=== PATIENT | female | born 1970 | race Caucasian/White ===

== ENCOUNTER → 2016-11-27 | Outpatient (CLI) | payer OTHER | LOC: FIMAGING 17:42 | PROVIDERS: ATTEND Family Medicine | DX: R51 Headache (principal) ==

== ENCOUNTER → 2017-06-04 | Outpatient (CLI) | payer OTHER | LOC: FIMAGING 09:23 | PROVIDERS: ATTEND Family Medicine | DX: Z12.31 Encounter for screening mammogram for malignant neoplasm of breast (principal) | CPT/HCPCS: G0202 ==

== ENCOUNTER 2017-07-02 15:07 | Emergency (ER) | payer OTHER ==
--- NOTE | 2017-07-02 15:58 | EDPHY ---
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 She reports that she had breast augmentation surgery approximately 3 weeks ago. Two days after surgery she started feeling right sided chest pressure, that has increased in intensity and frequency. Today has occurred 8 times with associated cardiac awareness and increased pressure with inspiratory effort. She denies any fever, chills, cough, abdominal pain, lower extremity swelling. She called her plastic surgeries office today and the nurse advisor to go to the emergency room for further evaluation. Modifying Factors: none Comment: ROS: see HPI Constitutional: No fever, no chills, no weight loss Eyes: No blurred vision Respiratory: No shortness of breath, no cough Cardiovascular: No chest pain Gastrointestinal: No nausea, no vomiting, no diarrhea Genitourinary: No dysuria Extremities: No myalgias Neurologic: No weakness, no numbness Skin: No rashes Hematologic: No bruising, no bleeding MEDICAL/SURGICAL/SOCIAL HISTORY: Medical history: Generally healthy other than PVCs in her 20s. Does not take any regular medications. Surgical history: Breast augmentation Social history: . CONSTITUTIONAL: Extremely well-appearing polite and cooperative adult white female, awake and alert, no obvious distress HEENT: Atraumatic and normocephalic, PERRL, EOMI. Tympanic membranes clear. Oropharynx clear, no exudate and moist pink mucosa. Airway patent. No lymphadenopathy. No meningismus. Cardiovascular: Normal S1/S2, regular rate, regular rhythm, without murmur rub or gallop. PULMONARY/CHEST: Symmetrical and nontender. Clear to auscultation bilaterally. Good air movement. No accessory muscle usage. ABDOMEN: Soft, nondistended, nontender, no rebound, no guarding, no peritoneal signs, no masses or organomegaly. No CVAT. EXTREMITIES: 2/2 pulses, strength 5/5, no deformities, no clubbing, no cyanosis or edema. NEUROLOGICAL: no focal neuro deficits. GCS 15. SKIN: Warm and dry, no erythema. no rash. Good capillary refill. Source: Patient Exam Limitations: No limitations - Personal History LMP (Females 10-55): 1-7 Days Ago Current Tetanus Diphtheria and Acellular Pertussis (TDAP): Yes - Medical/Surgical History Other PMH: PVCs years ago - Social History Smoking Status: Never smoked Constitutional: Initial Vital Signs Temperature (C) 36.7 C 07/02/17 15:09 Heart Rate 64 07/02/17 15:09 Respiratory Rate 16 07/02/17 15:09 Blood Pressure 128/69 H 07/02/17 15:09 O2 Sat (%) 100 07/02/17 15:09 O2 Delivery Mode Room Air Allergies/Adverse Reactions: morphine Allergy (Mild, Verified 07/02/17 15:08) Vomiting penicillin G Allergy (Mild, Verified 07/02/17 15:08) Vomiting Home Medications: Medication Instructions Recorded NK [No Known Home Meds] 07/02/17 Medical Decision Making - Diagnostics Imaging Results: Imaging Impressions Chest X-Ray 07/02/17 15:54 Impression: 1. Possible airways disease. 2. Asymmetry right upper lung. This is likely related to asymmetrical costochondral cartilage. If there are any old outside x-rays, we would be happy to review them to assess for interval change. If not recommend either follow-up chest radiography or noncontrast chest CT for further evaluation. Results discussed with Haydee Hamm at 4:26 pm. Chest/Thorax CTA 07/02/17 16:36 Impression: 1. No evidence of pulmonary embolus using CT protocol. 2. Small probably benign bilateral pulmonary nodules as detailed above. Consider follow-up noncontrast CT of the chest in one year to confirm stability and benign features. Findings discussed with Haydee Hamm PAC at 17:31 hour, 07/02/2017. Procedures: 12 lead EKG: Indication: Chest pain Rhythm: Normal sinus rhythm, rate 67 bpm [place]: Normal Intervals: Normal QRS: Normal ST segments: Normal INTERPRETATION: No acute ischemic changes, PVCs The 12 lead EKG was interpreted by myself and with attending. ED Course/Re-evaluation: Chest x-ray, labs, EKG ordered Evaluate for pulmonary embolism given recent surgery. Perc rule equals 1. Will start with a D-dimer. Vital signs reviewed upon arrival and no tachycardia or hypoxia. Physical exam shows no unilateral leg swelling. 1654: Labs reviewed and grossly on unremarkable except mildly elevated D-dimer CTA chest ordered Called by radiologist who advised that CTA chest shows no pulmonary embolism but does show right upper lobe right costochondral chondral returned pulmonary nodules and recommends 1 year follow-up Patient is a follow-up appointment with plastic surgery tomorrow No signs of sepsis, pulmonary embolism/acute coronary syndrome/congestive heart failure/arrhythmia/cellulitis/neurovascular compromise/tenting of skin/ compartment syndrome/extremities and joints examined above and below area of concern and are neurovascularly intact. Differential Diagnosis: Chest pain including but not limited to myocardial ischemia, pulmonary embolus, chest wall pain, pleural inflammation and pulmonary infectious causes. - Data Points Laboratory Results: Laboratory Results 07/02/17 15:45 07/02/17 15:45 07/02/17 07/02/17 07/02/17 15:45 15:45 15:45 WBC 7.17 10^3/uL 10^3/uL (3.80-9.50) RBC 4.29 10^6/uL 10^6/uL (4.18-5.33) Hgb 14.0 g/dL g/dL (12.6-16.3) Hct 40.4 % % (38.0-47.0) MCV 94.2 fL fL (81.5-99.8) MCH 32.6 pg pg (27.9-34.1) MCHC 34.7 g/dL g/dL (32.4-36.7) RDW 11.9 % % (11.5-15.2) Plt Count 266 10^3/uL 10^3/uL (150-400) MPV 9.8 fL fL (8.7-11.7) Neut % (Auto) 62.8 % % (39.3-74.2) Lymph % (Auto) 28.2 % % (15.0-45.0) [place] % (Auto) 6.0 % % (4.5-13.0) Eos % (Auto) 1.7 % % (0.6-7.6) Baso % (Auto) 1.0 % % (0.3-1.7) Nucleat RBC Rel Count 0.0 % % (0.0-0.2) Absolute Neuts (auto) 4.51 10^3/uL 10^3/uL (1.70-6.50) Absolute Lymphs (auto) 2.02 10^3/uL 10^3/uL (1.00-3.00) Absolute Monos (auto) 0.43 10^3/uL 10^3/uL (0.30-0.80) Absolute Eos (auto) 0.12 10^3/uL 10^3/uL (0.03-0.40) Absolute Basos (auto) 0.07 10^3/uL 10^3/uL (0.02-0.10) Absolute Nucleated RBC 0.00 10^3/uL 10^3/uL (0-0.01) Immature Gran % 0.3 % % (0.0-1.1) Immature Gran # 0.02 10^3/uL 10^3/uL (0.00-0.10) D-Dimer 0.55 ug/mLFEU H ug/mLFEU (0.00-0.50) Sodium 142 mEq/L mEq/L (134-144) Potassium 3.7 mEq/L mEq/L (3.5-5.2) Chloride 101 mEq/L mEq/L (97-110) Carbon Dioxide 29 mEq/l mEq/l (22-31) Anion Gap 12 mEq/L mEq/L (8-16) BUN 14 mg/dL mg/dL (7-23) Creatinine 0.9 mg/dL mg/dL (0.6-1.0) Estimated GFR > 60 Glucose 75 mg/dL mg/dL (70-100) Calcium 9.5 mg/dL mg/dL (8.5-10.4) Troponin I < 0.012 ng/mL ng/mL (0.000-0.034) NT-Pro-B Natriuret Pep 42 pg/mL pg/mL (0-125) Departure - Departure Disposition: Home, Routine, Self-Care Clinical Impression: Pulmonary nodule, right, Post-operative pain, Atypical chest pain Condition: Good Instructions: Pulmonary Nodules (ED), Palpitations (ED) Additional Instructions: Please keep your follow-up appointment with plastic surgery tomorrow. It is recommended that you have a repeat CT chest in 1 year to document the stability of your what appears to be benign pulmonary nodules. Regards to her PVCs and atypical chest pain it would be beneficial in 1-2 weeks to follow up with Cardiology to establish care. Referrals: Roxy Li MD [Primary Care Provider] - As per Instructions Jacob Grimes MD [Medical Doctor] - As per Instructions Kaiser Platt MD [Medical Doctor] - As per Instructions
--- NOTE | 2017-07-02 16:02 | CPEKG ---
Heart Rate: 67 RR Interval: 896 P-R Interval: 136 QRSD Interval: 96 QT Interval: 420 QTC Interval: 444 P [place]: 61 QRS [place]: 77 T Wave [place]: 64 EKG Severity - NORMAL ECG - EKG Impression: SINUS RHYTHM Electronically Signed By: Grady Wells 02-Jul-2017 20:58:51
[2017-07-02 16:05] LABS: % IMMATURE GRANULYOCYTES 0.3 % (0.0-1.1); ABSOLUTE IMMATURE GRANULOCYTES 0.02 10^3/uL (0.00-0.10); ADD DIFF? NO; ADD MORPH? NO; ADD SCAN? NO; ATYPICAL LYMPHOCYTE FLAG 30 (0-99); FRAGMENT RBC FLAG 0 (0-99); HEMATOCRIT 40.4 % (38.0-47.0); LEFT SHIFT FLG 0 (0-99); LIPEMIA HEMOLYSIS FLAG 90 (0-99); MEAN CELL HEMOGLOBIN 32.6 pg (27.9-34.1); MEAN CELL HEMOGLOBIN CONCENTR. 34.7 g/dL (32.4-36.7); MEAN CELL VOLUME 94.2 fL (81.5-99.8); MEAN PLATELET VOLUME 9.8 fL (8.7-11.7); PLATELET CLUMPS FLAG 0 (0-99); PLATELET COUNT 266 10^3/uL (150-400); RED BLOOD CELL COUNT 4.29 10^6/uL (4.18-5.33); RED CELL DISTRIBUTION WIDTH 11.9 % (11.5-15.2)
[2017-07-02 16:19] LABS: ANION GAP 12 mEq/L (8-16); CALCIUM 9.5 mg/dL (8.5-10.4); CARBON DIOXIDE 29 mEq/l (22-31); CHLORIDE 101 mEq/L (97-110); CREATININE 0.9 mg/dL (0.6-1.0); GLOMERULAR FILTRATION RATE > 60; GLUCOSE 75 mg/dL (70-100); POTASSIUM 3.7 mEq/L (3.5-5.2); SODIUM 142 mEq/L (134-144)
[2017-07-02 16:31] LABS: TROPONIN I < 0.012 ng/mL (0.000-0.034)
[2017-07-02] MEDS ORDERED: IOPAMIDOL (ISOVUE 370) 100 ML BTL IV ONE (16:45)
[2017-07-02 18:04] VITALS: BP 91/64; PULSE 70; RESP 18; TEMP 98.2; O2SAT 95
== END 2017-07-02 18:04 | disposition home or self-care (01) ==
DX: G89.18 Other acute postprocedural pain (principal); R91.1 Solitary pulmonary nodule; R07.89 Other chest pain
CPT/HCPCS: Q9967

== ENCOUNTER 2018-04-28 11:27 | Emergency (ER) | payer OTHER ==
[2018-04-28 12:12] VITALS: BP 111/82
== END 2018-04-28 12:39 | disposition left against medical advice (07) ==
DX: Z53.21 Procedure and treatment not carried out due to patient leaving prior to being seen by health care provider (principal)

== ENCOUNTER → 2018-09-21 | Outpatient (CLI) | payer OTHER | LOC: FIMAGING 15:15 | PROVIDERS: ATTEND Family Medicine | DX: R91.8 Other nonspecific abnormal finding of lung field (principal) ==

== ENCOUNTER → 2018-10-31 | Outpatient (CLI) | payer OTHER | LOC: BMCIMAGING 11:48 | PROVIDERS: ATTEND Family Medicine | DX: M79.671 Pain in right foot (principal) ==